=== PATIENT | female | born 1970 | race Hispanic/Latino ===

== ENCOUNTER → 2018-04-13 | Outpatient (CLI) | payer BC ==
[~2018-04-13] MED LIST: IOPAMIDOL 370 MG/ML 200 ML INFUS..BTL INJ ONE; SODIUM CHLORIDE 0.9% 50ML 50 ML ONE
[2018-04-13 11:20] LABS: BLOOD UREA NITROGEN 6 mg/dL (7-26); BUN/CREATININE RATIO 8 (6-25); CREATININE, SERUM 0.71 mg/dL (0.57-1.11); EST GLOMERULAR FILTRATION RATE > 60 ML/MIN (60-)
--- NOTE | 2018-04-13 12:30 | Diagnostic Imaging Report ---
EXAM: CT Abdomen and Pelvis WITH contrast INDICATION: ^LOWER ABDOMINAL PAIN COMPARISON: None. TECHNIQUE: Abdomen and pelvis were scanned utilizing a multidetector helical scanner from the lung base to the pubic symphysis after administration of IV contrast. Coronal and sagittal reformations were obtained. Routine protocol was performed. Scan was performed when during portal venous phase. IV CONTRAST: 100 mL of Isovue 370 ORAL CONTRAST: Water COMPLICATIONS: None RADIATION DOSE: Total DLP: 1341.52 mGy*cm Estimated effective dose: (DLP x 0.015 x size factor) mSv CTDIvol has been reviewed. It is below the limits set by the Radiation Protocol Committee (RPC). FINDINGS: LINES and TUBES: None. LOWER THORAX: Unremarkable HEPATOBILIARY: The liver is diffuse hypodense compared to the spleen, consistent with diffuse hepatic diffuse hepatic steatosis. No focal hepatic lesions. No biliary ductal dilation. GALLBLADDER: There are stones in the gallbladder. No wall thickening. SPLEEN: No splenomegaly. PANCREAS: No focal masses or ductal dilatation. ADRENALS: No adrenal nodules KIDNEYS/URETERS: Kidneys enhance symmetrically. No hydronephrosis. No cystic or solid mass lesions. No stones. GI TRACT: No abnormal distention, wall thickening, or evidence of bowel obstruction. There are diverticula within the colon without evidence of diverticulitis. Appendix is not seen. Several prominent right lower quadrant pericecal lymph nodes. PELVIC ORGANS/BLADDER: Uterus is attached to the anterior abdominal wall and mildly retroflexed and likely related to prior . The bladder is anteriorly displaced and compressed by the uterus. Mild pelvic floor prolapse. LYMPH NODES: No lymphadenopathy. VESSELS: Unremarkable. PERITONEUM / RETROPERITONEUM: No free air or fluid. 2.7 x 6.1 x 2.9 cm fat-containing density near the distal esophagus at the level of the diaphragm. This likely represents a lipoma. Alternatively this could represent a chylocele. BONES: Unremarkable. SOFT TISSUES: 10.8 x 5.8 x 9.3 cm omental containing umbilical hernia with a neck of 1.6 x 2.4 cm. IMPRESSION: 1. 10.8 x 5.8 x 9.3 cm all mental containing umbilical hernia. 2. Diffuse hepatic steatosis. 3. Cholelithiasis without evidence for acute cholecystitis. 4. Colonic diverticulosis without evidence of diverticulitis. 5. 2.7 x 6.1 x 2.9 cm fat-containing lesion in the thorax abutting the diaphragm and esophagus. This may represent a lipoma versus chylocele. 6. Several prominent pericecal lymph nodes without appendix visualized. This may represent adenitis. Signed by: Dr. Maxim Bustillo M.D. on 04/13/2018 12:27 PM
== END ==
LOC: CT 10:14
PROVIDERS: ATTEND Internal Medicine Gastroenterology
DX: R10.30 Lower abdominal pain, unspecified (principal)
CPT/HCPCS: 36415; 74177; 82565; 84520; Q9967